=== PATIENT | female | born 1980 | race Caucasian/White ===

== ENCOUNTER 2018-05-06 10:48 | Inpatient (IN) ==
[2018-05-06 11:42] LABS: BASO# 0.02 X1000 (0.0-0.2); BASO% 0.1 % (0.0-0.8); EOS# 0.02 X1000 (0.0-0.7); EOS% 0.1 % (0.0-10.0); HEMATOCRIT 39.5 % (37.0-47.0); IMM GRAN# 0.07 X1000 (0.0-0.04); IMM GRAN% 0.4 % (0.0-0.5); LYMPH# 1.46 X1000 (1.2-3.4); LYMPH% 7.7 % (20.5-51.1); MCH 29.1 PG (27-31); MCHC 32.9 g/dL (33-37); MCV 88.4 FL (81-99); MONO# 1.29 X1000 (0.11-0.59); MONO% 6.8 % (1.7-9.3); MPV 9.5 FL (7.4-10.4); NEUT# 16.14 X1000 (1.4-6.5); NEUT% 84.9 % (42.2-75.2); PLT 413 X1000 (130-400); RBC 4.47 XMIL (4.2-5.4); RDW 12.9 % (11.5-14.5)
[2018-05-06 12:12] LABS: BE 1.7 mmoll (-3.0-3.0); BLOOD TYPE ARTERIAL; METHB 1.2 % (0.0-1.5); O2(CT) 15.7 mL/dL (15.0-23.0); PO2(98.6) 59 mmHg (60-100); SAMPLE BLOOD; SAO2 91.5 % (95.0-100.0); THB 12.7 g/dL (11.5-17.4); pH(98.6) 7.25 (7.35-7.45)
[2018-05-06 12:13] LABS: AGAP 14; ALBUMIN 4.1 g/dL (3.5-5.0); ALKALINE PHOSPHATASE 75 U/L (32-104); BUN 17 mg/dL (8-22); CALCIUM 8.8 mg/dL (8.8-10.2); CHLORIDE 103 mmol/L (98-107); COSMO 294; CREATININE 1.3 mg/dL (0.5-0.9); ESTIMATED GFR 46; GLUCOSE 140 mg/dL (70-104); GOT 17 U/L (10-30); GPT 14 U/L (10-36); POTASSIUM 3.3 mmol/L (3.5-5.1); SODIUM 146 mmol/L (136-145); TCO2 29 mmol/L (25-35); TOTAL BILIRUBIN < 0.15 mg/dL (0.20-1.00)
[2018-05-06 12:18] LABS: PCO2(98.6) 70 mmHg (35-45)
[2018-05-06 12:19] LABS: ALLEN TEST YES; MODALITY ROOM AIR; O2HB 88.1 % (95.0-99.0)
[2018-05-06 12:45] LABS: UR AMPHETAMINES QUAL PRESUMPTIVE POSITIVE (NONE DETECT); UR BARBITUATES QUAL NONE DETECTED (NONE DETECT); UR BENZODIAZEPIN QUAL NONE DETECTED (NONE DETECT); UR CANNABINOIDS QUAL NONE DETECTED (NONE DETECT); UR COCAINE QUAL NONE DETECTED (NONE DETECT); UR METHADONE QUAL NONE DETECTED (NONE DETECT); UR METHAMPHETAMINE QUAL NONE DETECTED (NONE DETECT); UR OPIATES QUAL PRESUMPTIVE POSITIVE (NONE DETECT); UR OXYCODONE QUAL NONE DETECTED (NONE DETECT); UR PCP QUAL NONE DETECTED (NONE DETECT); UR PROPOXYPHENE QUAL NONE DETECTED (NONE DETECT); UR TCA QUAL NONE DETECTED (NONE DETECT)
[2018-05-06 12:48] LABS: BILIRUBIN URINE NEGATIVE (NEGATIVE); BLOOD URINE TRACE (NEGATIVE); CLARITY CLEAR (CLEAR); COLOR YELLOW; GLUCOSE URINE NEGATIVE (NEGATIVE); KETONE URINE NEGATIVE (NEGATIVE); LEUKOCYTES URINE NEGATIVE (NEGATIVE); NITRITE URINE NEGATIVE (NEGATIVE); PROTEIN URINE 1+(30 mg/dL) mg/dL (NEGATIVE); UROBILINOGEN URINE NORMAL
[2018-05-06 12:55] LABS: URINE BACTERIA 2+ /HFP; URINE EPITHELIAL CELLS <10 /HPF (<10); URINE RBC <10 /HPF (<10)
[2018-05-06 12:56] LABS: URINE CAST GRANULAR PRESENT /LPF; URINE SOURCE CATH
--- NOTE | 2018-05-06 13:28 | Diag Imaging Result Doc PS360 ---
CHEST-2 VIEWS - 05/06/2018 INDICATION: dizzy COMPARISON: None FINDINGS: The lungs are normally expanded and clear. Heart size and mediastinal contours are normal. No pneumothorax or pleural effusion. IMPRESSION: Negative exam. Electronically signed by Aditya Fisher 05/06/2018 1:26 PM
--- NOTE | 2018-05-06 13:31 | Diag Imaging Result Doc PS360 ---
CT HEAD W/O CONTRAST - 05/06/2018 INDICATION: dizzy COMPARISON: None FINDINGS: The ventricles and sulci are normal in size and contour. No intracranial mass or hemorrhage. The skull is intact. The sinuses mastoids and middle ears are clear. IMPRESSION: Negative exam. This exam was performed using automated exposure control, adjustment of mA or kV according to patient size, and/or use of iterative reconstruction technique Electronically signed by Aditya Fisher 05/06/2018 1:29 PM
--- NOTE | 2018-05-06 13:45 | PROVIDER DOCUMENTATION ---
This chart was entered by Anabel Morrell Scribe, acting as scribe for Ralf Moulton MD. HPI-General Adult - General Chief Complaint: Fatigue Stated Complaint: DISORIENTED Time Seen by Provider: 05/06/18 11:48 Source: patient, family Allergies/Adverse Reactions: Patient Allergies Allergy/AdvReac Type Severity Reaction Status Date / Time meperidine [From Demerol] AdvReac HIVES Verified 05/06/18 11:08 morphine AdvReac HIVES Verified 05/06/18 11:09 - History of Present Illness -Gen Adult Nature of Presenting Problems: 37 year old female presents to the ER due to being disoriented. Pt's states that when he went to wake her this am she was difficult to arouse and had unusual eye movement. Pt's daughter also confirms unusual hand and feet movement. Pt denies taking any abnormal medication and denies being sick. Location of Pain/Injury: reports: none Pain Radiation: reports: no radiation Quality of Pain: reports: none Onset/Duration: reports: this morning Timing: reports: still present Context/Activities at Onset: reports: sleep Associated Symptoms: reports: other (hard to wake) Review of Systems - Adult - REVIEW OF SYSTEMS - ADULT Constitutional: denies: chills, fever Eyes: reports: no symptoms reported Ears, Nose, Mouth & Throat: reports: no symptoms reported Cardiovascular: reports: no symptoms reported Respiratory: denies: cough, shortness of breath, wheezing Gastrointestinal: denies: abdominal pain, nausea Genitourinary: reports: no symptoms reported Musculoskeletal: reports: no symptoms reported Integumentary: reports: no symptoms reported Neurological: reports: loss of balance, slurred speech, other (unusual movement) Psychiatric: reports: no symptoms reported Endocrine: reports: no symptoms reported Hematologic/Lymphatic: reports: no symptoms reported Allergic/Immunologic: reports: no symptoms reported All Other Systems: Reviewed and Negative Past History - Adult - PAST MEDICAL HISTORY-ADULT Review of Records: reports: Nursing Assessment Review, Medications Reviewed Psychiatric: reports: depression - IMMUNIZATION STATUS Childhood Immunizations: See Nurse Assessment Flu Vaccine: See Nurse Assessment Physical Exam-General - PHYSICAL EXAM-ADULT Initial Vital Signs Reviewed: Yes - CONSTITUTIONAL General Appearance: alert, no apparent distress - EYES Eyes: PERRL/EOMI, pink conjunctivae - HEAD, EARS, NOSE, MOUTH & THROAT HENMT: normocephalic/atraumatic. negative: moist mucous membranes - NECK Neck: non-tender, normal inspection - RESPIRATORY Respiratory: lungs clear, normal breath sounds - CARDIOVASCULAR Cardiovascular: negative: regular rate, rhythm - MUSCULOSKELETAL Back Exam: normal inspection, no CVA tenderness, no vertebral tenderness Extremity: non-tender, normal inspection - SKIN Integumentary: normal color, warm/dry - NEUROLOGIC Neurologic: grossly normal, no motor/sensory deficits - PSYCHIATRIC Psych/Mental Status: normal mood/affect, normal thought content, normal thought process, oriented x 3 Progress - PLAN OF CARE/RESULTS Progress/Plan/Lab Results: Vital Signs - 8 hr 05/06/18 10:58 Temperature 97.8 F Pulse Rate 120 H Respiratory Rate 18 Blood Pressure 136/82 Laboratory Results - last 24 hr 05/06/18 11:30 WBC 19.00 H RBC 4.47 Hgb 13.0 Hct 39.5 MCV 88.4 MCH 29.1 MCHC 32.9 L RDW Std Deviation 12.9 Plt Count 413 H MPV 9.5 Immature Gran % (Auto) 0.4 Neut % (Auto) 84.9 H Lymph % (Auto) 7.7 L [place] % (Auto) 6.8 Eos % (Auto) 0.1 Baso % (Auto) 0.1 Immature Gran # (Auto) 0.07 H Neut # (Auto) 16.14 H Lymph # (Auto) 1.46 [place] # (Auto) 1.29 H Eos # (Auto) 0.02 Baso # (Auto) 0.02 Orders Category Date Time Status IV Insertion ORDERED Care 05/06/18 11:32 Completed ABG [RESP] Routine Lab 05/06/18 11:49 Ordered ALCOHOL BLOOD Stat Lab 05/06/18 11:30 Received CBC WITH DIFF [HEME] Stat Lab 05/06/18 11:30 Completed CMP [COMPREHENSIVE METABOLIC PANEL] [CHEM] Stat Lab 05/06/18 11:30 Received LACTATE, PLASMA [CHEM] Stat Lab 05/06/18 11:[address] W/POSS RFLX CULT [URINALYSIS] Stat Lab 05/06/18 11:10 Uncollected URINE DRUG SCREEN PL Stat Lab 05/06/18 11:10 Uncollected Result Diagrams: 05/06/18 11:30 02/10/19 11:30 Departure - Departure Date of Disposition Decision: 05/06/18 Time of Disposition Decision: 13:13 DIAGNOSIS: 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 The physician did have a face to face encounter with the patient. This chart was documented by the indicated scribe, (Anabel Morrell, Derik) and accurately reflects the services I performed and decisions made by me, Ralf Moulton MD, as attested by the provider's signature.
[2018-05-06] MEDS ORDERED: TYLENOL PO PRN (15:44)
[2018-05-06] MEDS ORDERED: ZOFRAN IV PRN (15:44)
[2018-05-06] MEDS: NS 1,000 ML IV SCH (15:52)
[2018-05-06 16:25] LABS: BILIRUBIN URINE NEGATIVE (NEGATIVE); BLOOD URINE NEGATIVE (NEGATIVE); CLARITY CLEAR (CLEAR); COLOR YELLOW; GLUCOSE URINE NEGATIVE (NEGATIVE); KETONE URINE TRACE mg/dL (NEGATIVE); LEUKOCYTES URINE NEGATIVE (NEGATIVE); NITRITE URINE POSITIVE (NEGATIVE); PROTEIN URINE TRACE mg/dL (NEGATIVE); UROBILINOGEN URINE NORMAL
[2018-05-06 16:28] LABS: URINE SOURCE CATH
[2018-05-06 16:30] LABS: URINE BACTERIA 4+ /HFP; URINE EPITHELIAL CELLS <10 /HPF (<10); URINE RBC <10 /HPF (<10); URINE WBC <10 /HPF (<10); URINE YEAST NONE SEEN /HPF
[2018-05-06 16:31] LABS: URINE CAST GRANULAR PRESENT /LPF; URINE CRYSTAL NONE SEEN /HPF
[2018-05-06] MEDS ORDERED: PROTONIX IV SCH (17:15)
[2018-05-06] MEDS ORDERED: SODIUM CHLORIDE 0.9% INJ SCH (17:15)
[2018-05-06] MEDS: ROCEPHIN 1 GM in NS 50 ML IV SCH (18:35)
--- NOTE | 2018-05-06 18:36 | HISTORY AND PHYSICAL ---
CHIEF COMPLAINT: Unresponsive. HISTORY OF PRESENT ILLNESS: This is a 37-year-old female with a history of [*] who presented to the emergency room by private vehicle. Her boyfriend and his daughter are present with the patient. The patient is lethargic, difficult to wake as well as carry on conversations. The boyfriend stated that the patient went to bed normal last night that she slept in today which was unusual. He went in to wake her up and had great difficulty. He was able to wake her up enough to get dressed and get in the car to bring her to the hospital. On arrival to the hospital she was disoriented. Once aroused she would open her eyes and attempt to answer questions. When she was awake eyes did gaze to the left in up and down pattern. She would then close her eyes and drift back to sleep. The boyfriend and his daughter stated that she had been doing this since awakened earlier in the day. She moves extremities at random and to command although at times she was very slow to respond. She was able to name her medications at least some of them and she was able to say that she started Lexapro sometime in the last 2 weeks but we are unsure and it is unsure if she had taken it before. She did state that she was taking Wellbutrin, Adderall, rosuvastatin and Lexapro. She and the boyfriend and his daughter denied any prior episodes. They state that she had a "allergy and runny nose off and on over the past few weeks but nothing [*]. PAST MEDICAL HISTORY: High cholesterol, ADD, depression. PAST SURGICAL HISTORY: Hysterectomy. SOCIAL HISTORY: Denies alcohol, tobacco or illicit drug use. ALLERGIES: Demerol and morphine which causes hives. HOME MEDICATIONS: 1. Wellbutrin SR 150 mg b.i.d. 2. Adderall 10 mg daily . 3. Lexapro 10 mg daily. 4. Rosuvastatin calcium 10 mg at bedtime. REVIEW OF SYSTEMS: Unable to obtain from the patient. PHYSICAL EXAM: This is a 37-year-old female who is lying in the bed in the emergency room in no distress . HEENT: Pupils are 4 to 5, equal, round and react to light, EOMs are intact, sclerae anicteric. Head is normocephalic, atraumatic. Mucous membranes are moist. NECK: Supple with trachea midline. CARDIOVASCULAR: Regular rate and rhythm, she is tachycardic, S1 and S2 appreciated. She has no lower extremity edema. Peripheral pulses are palpable x4 extremities. PULMONARY: Breath sounds are clear with no increased work of breathing noted. Chest rises and falls symmetrically with respiration. GASTROINTESTINAL: Abdomen soft, nondistended with bowel sounds in all 4 quadrants. SKIN: Warm and dry. On body inspection she had no rashes, lesions were noted. NEUROLOGIC: As stated above. LABS: WBC is 19 with hemoglobin 13, hematocrit 39.5 and platelets of 413,000, sodium is 146, potassium 3.3, BUN 17, creatinine 1.3 with a glucose of 140. Urinalysis positive for nitrites with 4+ bacteria. Urine culture is pending. Urine drug screen is presumptive positive for amphetamines and opiates. Blood alcohol was none detected. CT of the head reveals negative exam. Ventricles and sulci are normal in size and contour. There is no intracranial mass or hemorrhage. Skull is intact. Chest x-ray revealed negative exam. ASSESSMENT AND PLAN: 1. Altered mental status. 2. Leukocytosis. 3. Acute kidney injury. 4. Hypokalemia. 5. Obesity. 6. Possible serotonin syndrome. PLAN: The patient has been admitted to ICU for close evaluation, course she will be placed on telemetry with neuro checks, she will be NPO at present. We will check a CBC and a CMP in the morning. We will attempt to identify her home medications. We will hold Lexapro and Wellbutrin and will review other medications once confirmed and restarted as appropriate. Will continue with IV hydration. She was given Rocephin in the emergency room, will start Rocephin as there is a possible UTI and further antibiotics will be culture driven. Further treatments pending hospital course. Dictated by MILIND Obrien for Martin Adkins MD This chart was documented by, MILIND Obrien and accurately reflects the services performed, treatment plan and medical decisions as attested by the providers signature Martin Adkins MD. cc: MILIND Obrien MD
--- NOTE | 2018-05-06 18:57 | Diag Imaging Result Doc PS360 ---
NECK AP AND/OR LAT SOFT TISSUE - 05/06/2018 INDICATION: Abnormal breathing TECHNIQUE: Two views COMPARISON: None FINDINGS: The soft tissues of the neck are normal. The airway is clear. Bony structures are intact. IMPRESSION: Negative exam. Electronically signed by Aditya Fisher 05/06/2018 6:55 PM
--- NOTE | 2018-05-06 22:39 | HISTORY AND PHYSICAL ---
ADDENDUM: Patient seen and examined by myself. Full note dictated and discussed with nurse practitioner. Patient presented to the hospital confused and disoriented. Upon talking with her, she would answer a question or 2 appropriately and then would fall asleep before finishing answering. We will admit her to the hospital ICU. Thankfully, she has had a negative CT and a negative workup so far. Further orders as needed. cc: Martin Adkins MD
[2018-05-07] MEDS: NS 1,000 ML IV SCH ×2 (04:47→12:13)
[2018-05-07 06:10] LABS: HEMATOCRIT 36.9 % (37.0-47.0); HEMOGLOBIN 11.5 g/dL (12.0-16.0); MCH 28.4 PG (27-31); MCHC 31.2 g/dL (33-37); MCV 91.1 FL (81-99); MPV 9.8 FL (7.4-10.4); RBC 4.05 XMIL (4.2-5.4); RDW 13.1 % (11.5-14.5); WBC 11.12 X1000 (4.8-10.8)
[2018-05-07 06:24] LABS: AGAP 9; ALBUMIN 3.4 g/dL (3.5-5.0); ALKALINE PHOSPHATASE 60 U/L (32-104); BUN 16 mg/dL (8-22); CHLORIDE 108 mmol/L (98-107); COSMO 289; CREATININE 0.8 mg/dL (0.5-0.9); ESTIMATED GFR > 60; GLUCOSE 89 mg/dL (70-104); GOT 17 U/L (10-30); GPT 11 U/L (10-36); POTASSIUM 3.4 mmol/L (3.5-5.1); SODIUM 145 mmol/L (136-145); TCO2 28 mmol/L (25-35); TOTAL PROTEIN 6.5 g/dL (6.3-8.3)
[2018-05-07 13:03] VITALS: BP 176/92
[2018-05-07] MEDS: ROCEPHIN 1 GM in NS 50 ML IV SCH (13:29)
[2018-05-07] MEDS ORDERED: ROCEPHIN 1 GM in NS 50 ML IV ONE (13:35)
--- NOTE | 2018-05-08 02:58 | DISCHARGE SUMMARY ---
ADMISSION DATE: 05/06/2018 DISCHARGE DATE: 05/07/2018 DISCHARGE DIAGNOSES: 1. Encephalopathy presumably toxic versus metabolic with urinary tract infection. 2. Drug interaction, possibly early serotonin syndrome. 3. Gram-negative lacy type urinary tract infection. 4. Migraines. 5. Depression. BRIEF HISTORY: This is a 37-year-old female, she came in because she was getting confused, lethargic, difficult to arouse. She just could not wake up. She is on Lexapro, Wellbutrin, Adderall and rosuvastatin, which her rosuvastatin I think was an initial medication. She has a nonfocal exam. Her workup really was unremarkable except she did have a UTI and she did have leukocytosis. She was a little hypercapnic as well. PCO2 was up at 70. The following day with fluids and antibiotics she is clinically back to normal. Now the Lexapro she has been taking intermittently and at low dose, but there is a concern mixed with the Wellbutrin of possible serotonin syndrome, although she was not hypertensive, diaphoretic or plethoric but in any case there it at very least a drug reaction between those medications and we advised to stop the Lexapro, continue Wellbutrin alone. She had UTI for which we have re-initiated Rocephin. We will maintain that until we get cultures back and I advised her to stay hydrated. Recommended to continue her medications until we could get this situation. She will be discharged on Keflex 500 daily, and her other home medications which I think she is on Wellbutrin 150 daily, Adderall, I told her to stop her Lexapro. Follow up with her PCP in 1 week. cc: MD Martin Domingo MD
== END 2018-05-07 14:46 | disposition home or self-care (01) | DRG 92 ==
LOC: P.ICU 10:48 → P.ED 10:48 → SUATTDRO 14:44 → OBSVTOIN 14:44
PROVIDERS: ATTEND Internal Medicine
CPT/HCPCS: 51701; 70360; 70450; 71020; 71046; 80053; 80104; 80301; 80305; 80307; 80320; 81001; 82055; 82805; 83605; 85025; 85027; 87077; 87088; 87186; 94761; 99285; A9270; C9113; G0431; G0434; G0477; G0480; G6040; J0696; J7030; P9612; S0164